=== PATIENT | male | born 1975 | race Caucasian/White ===

== ENCOUNTER 2016-09-18 08:54 | Emergency (ER) | payer SELFPAY ==
[~2016-09-18] VITALS: Ht 195.6 cm; Wt 171.1 kg
[~2016-09-18 08:54] MED LIST: NOHOMEMEDS; VENTOLIN HFA18 GM IH
[2016-09-18] MEDS ORDERED: BACTRIM,SEPT1 TABLET PO (10:22)
[2016-09-18 10:31] VITALS: BP 155/78
== END 2016-09-18 10:33 | disposition home or self-care (01) ==
LOC: EME 08:54
DX: L03.115 Cellulitis of right lower limb (principal); S90.811A Abrasion, right foot, initial encounter; S92.511A Displaced fracture of proximal phalanx of right lesser toe(s), initial encounter for closed fracture; W20.8XXA Other cause of strike by thrown, projected or falling object, initial encounter; F17.200 Nicotine dependence, unspecified, uncomplicated
CPT/HCPCS: 73630; 99281; 99284

== ENCOUNTER 2017-02-10 18:40 | Emergency (ER) | payer SELFPAY ==
[~2017-02-10] VITALS: Ht 193 cm; Wt 175.3 kg
[~2017-02-10 18:40] MED LIST changes: +BACTRIM,SEPT1 TABLET PO
[2017-02-10 19:16] LABS: HEMATOCRIT 40.2 % (38.0-50.0); MCH 28.8 PG (29.0-34.0); MCHC 34.6 G/DL (30.0-36.0); MCV 83.2 FL (86-99); MEAN PLAT.VOLUME 9.2 uM^3 (9.0-12.4); PLATELET COUNT 315 K/uL (156-360); RBC DIS.WIDTH-CV 14.7 % (11.8-14.6); RBC DIS.WIDTH-SD 44.7 % (39-53); RED BLOOD COUNT 4.83 M/uL (4.00-5.50); WHITE BLOOD COUNT 14.9 K/uL (4.1-10.2)
[2017-02-10 19:25] LABS: CHLORIDE 104 mEq/L (99-109); SODIUM 134 mEq/L (136-147)
[2017-02-10 19:26] LABS: GLUCOSE 105 mg/dL (70-99)
[2017-02-10 19:28] LABS: ANION GAP 10 MEQ/L (2-14)
[2017-02-10 19:30] LABS: GFR ESTIMATE (CALCULATED) > 59 mL/min/
[2017-02-10 19:31] LABS: UREA NITROGEN (BUN) 10 mg/dL (9-23)
[2017-02-10 19:44] LABS: TROP-I INTERPRETATION NEGATIVE; TROPONIN-I < 0.01 ng/mL (0.0-0.30)
[2017-02-10] MEDS ORDERED: VENTOLIN HFA18 GM IH (23:57)
[2017-02-10] MEDS ORDERED: ZITHROMAX Z-PA250 MG PO (23:57)
[2017-02-10] MEDS ORDERED: CEFTIN500 MG PO (23:59)
[2017-02-11 00:24] VITALS: BP 129/62
== END 2017-02-11 00:25 | disposition home or self-care (01) ==
LOC: EME 18:40
DX: J18.9 Pneumonia, unspecified organism (principal); F17.200 Nicotine dependence, unspecified, uncomplicated
CPT/HCPCS: 71020; 71275; 80048; 83605; 84484; 85027; 87040; 93005; 99281; 99285; J0456; J0696